=== PATIENT | female | born 1995 ===

== ENCOUNTER 2018-09-02 05:19 | Emergency (ER) | payer OTHER ==
[2018-09-02 05:25] VITALS: RESP 18; O2SAT 100
--- NOTE | 2018-09-02 06:05 | C.PDOC ---
History Of Present Illness 23 year old female presents to the emergency department with complaints of left shoulder pain. Patient states that she was pushing a cart at work and fell on her left shoulder. Patient reports decreased mobility to shoulder and pain exacerbated by movement. She denies other injuries. Time Seen by Provider: 09/02/18 05:37 Chief Complaint (Nursing): Upper Extremity Problem/Injury History Per: Patient History/Exam Limitations: no limitations Onset/Duration Of Symptoms: Hrs Current Symptoms Are (Timing): Still Present Quality: "Pain" Past Medical History Reviewed: Historical Data, Nursing Documentation, Vital Signs Vital Signs: Last Vital Signs Temp 99.5 F 09/02/18 05:24 Pulse 78 09/02/18 05:24 Resp 18 09/02/18 05:24 BP 136/80 09/02/18 05:24 Pulse Ox 100 09/02/18 05:24 - Medical History PMH: No Chronic Diseases Surgical History: No Surg Hx Family History: States: No Known Family Hx - Social History Hx Alcohol Use: No Hx Substance Use: No - Immunization History Hx Tetanus Toxoid Vaccination: No Hx Influenza Vaccination: No Hx Pneumococcal Vaccination: No Review Of Systems Except As Marked, All Systems Reviewed And Found Negative. Constitutional: Negative for: Fever, Chills Cardiovascular: Negative for: Chest Pain, Palpitations Respiratory: Negative for: Cough Gastrointestinal: Negative for: Nausea, Vomiting, Abdominal Pain, Diarrhea Musculoskeletal: Positive for: Shoulder Pain (left shoulder) Physical Exam - Physical Exam Appears: Non-toxic, No Acute Distress Skin: Normal Color, Warm, Dry Head: Atraumatic, Normacephalic Eye(s): bilateral: Normal Inspection, PERRL, EOMI Neck: Normal, Supple Chest: Symmetrical, No Tenderness Respiratory: Normal Breath Sounds Extremity: Normal ROM (slight limitation but full), Tenderness (tenderness to palpation of left anterior shoulder), No Deformity, No Swelling Neurological/Psych: Oriented x3, Normal Speech, Normal Cognition ED Course And Treatment O2 Sat by Pulse Oximetry: 100 (RA) Pulse Ox Interpretation: Normal - Other Rad Left shoulder X-Ray: Interpreted by Me, Viewed By Me Interpretation: No fx or dislocation Progress Note: Pt placed in sling for support. Motrin given Medical Decision Making Medical Decision Making: Plan: Motrin 600mg PO XR Left Shoulder Disposition Counseled Patient/Family Regarding: Diagnosis, Need For Followup, Rx Given - Disposition Disposition: HOME/ ROUTINE Disposition Time: 06:37 Condition: STABLE Additional Instructions: Take motrin for pain Keep sling for support Return to ER if worse Prescriptions: Ibuprofen [Motrin] 600 mg PO Q6H #20 tab Instructions: Shoulder Sprain (DC) Forms: [facility] ([place]), Work Excuse - Clinical Impression Clinical Impression: Shoulder pain, left - PA / [employer] / Resident Statement MD/DO has reviewed & agrees with the documentation as recorded. - Scribe Statement The provider has reviewed the documentation as recorded by the Scribe (Sachin Powell) All medical record entries made by the Scribe were at my direction and personally dictated by me. I have reviewed the chart and agree that the record accurately reflects my personal performance of the history, physical exam, medical decision making, and the department course for this patient. I have also personally directed, reviewed, and agree with the discharge instructions and disposition.
[2018-09-02 06:49] VITALS: BP 135/80; PULSE 77; TEMP 98.4
--- NOTE | 2018-09-02 14:48 | RAD ---
Date of service: 09/02/2018 PROCEDURE: Radiographs of the Left Shoulder HISTORY: pain , fall COMPARISON: No prior. FINDINGS: BONES: Normal. No fracture. JOINTS: Normal. Glenohumeral and acromioclavicular joints preserved. No osteoarthritis. SOFT TISSUES: Normal. OTHER FINDINGS: None. IMPRESSION: Normal radiographs of the left shoulder.
== END 2018-09-02 06:50 | disposition home or self-care (01) ==
LOC: C.ER 05:19
DX: M25.512 Pain in left shoulder (principal)